=== PATIENT | female | born 1995 | race Caucasian/White ===

== ENCOUNTER 2019-08-28 21:40 | Emergency (ER) | payer OTHER ==
[~2019-08-28] VITALS: Ht 188 cm; Wt 79.5 kg
[~2019-08-28 21:40] MED LIST: DEPO150I12 IM; LEVO100T5 PO; ONDA-83 PO; REGL5TAB2 PO; TRAM50TA2 PO
[2019-08-28] MEDS ORDERED: ATIV1TAB10 PO (21:47)
[2019-08-29 00:07] LABS: BASO % 0.3 % (0.0-1.0); EOS # 0.1 10^3/uL (0.0-0.5); EOS % 0.8 % (0.0-3.0); HEMATOCRIT 39.4 % (36.0-47.0); HEMOGLOBIN 13.4 g/dl (12.0-15.5); LYMPH # 3.3 10^3/uL (1.5-5.0); LYMPH % 36.2 % (24.0-44.0); MEAN CORPUSCULAR HEMOGLOBIN 29.6 pg (27.0-33.0); MEAN CORPUSCULAR VOLUME 87.2 fl (80.0-96.0); MONO # 0.7 10^3/uL (0.0-0.8); MONO % 7.4 % (0.0-5.0); NEUTROPHILS % 54.9 % (36.0-66.0); PLATELET COUNT, AUTOMATED 258 10^3/uL (150-450); RED BLOOD COUNT 4.52 10^6/uL (4.00-5.40); WHITE BLOOD COUNT 9.1 10^3/uL (4.0-10.0)
[2019-08-29 00:11] LABS: ALBUMIN 4.3 GM/DL (3.2-5.2); ALT/SGPT 12 U/L (12-78); BILIRUBIN,DIRECT 0.1 MG/DL (0.0-0.2); BILIRUBIN,TOTAL 0.4 MG/DL (0.2-1.0); CK-MB VALUE MASS < 1.0 NG/ML (<3.6); CPK CREATINE PHOSPHOKINASE 62 U/L (26-192); MB/CK RELATIVE INDEX 1.61 (< OR =4); RHEUMATOID FACTOR QUANT < 10.0 IU/ML (<15.0); TOTAL PROTEIN 7.6 GM/DL (6.4-8.2); TROPONIN I < 0.02 NG/ML (< 0.10)
[2019-08-29 00:13] LABS: MONO REFLEX EBV COMP NEGATIVE (NEGATIVE)
[2019-08-29 01:22] VITALS: BP 131/89
[2019-08-29 01:37] LABS: ERYTHROCYTE SEDIMENTATION RATE 7 mm/hr (0-20)
--- NOTE | 2019-08-29 12:55 | ECGEPIP ---
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
[2019-09-01 14:07] LABS: ANTI DOUBLE STRAND-DNA AB 6 IU/mL (0-9); ANTINUCLEAR ANTIBODIES DIRECT Positive (Negative); RNP ANTIBODIES <0.2 AI (0.0-0.9); SJOGREN'S ANTI SS-A 3.2 AI (0.0-0.9); SJOGREN'S ANTI SS-B <0.2 AI (0.0-0.9); SMITH ANTIBODIES <0.2 AI (0.0-0.9)
[2019-09-01 17:17] LABS: EBV AB TO NUCLEAR ANTIGEN >600.0 U/mL (0.0-17.9); EBV VIRAL CAPSID AG IgM <36.0 U/mL (0.0-35.9); Lyme Disease IgG/IgM Antibodie <0.91 ISR (0.00-0.90); Lyme Disease IgM Ab Quantitati <0.80 index (0.00-0.79)
== END 2019-08-29 01:30 | disposition home or self-care (01) ==
LOC: M ED 21:40
DX: R53.81 Other malaise (principal); R00.2 Palpitations; R10.9 Unspecified abdominal pain; I45.19 Other right bundle-branch block; E03.9 Hypothyroidism, unspecified; Z79.890 Hormone replacement therapy; Z79.3 Long term (current) use of hormonal contraceptives

== ENCOUNTER → 2019-09-01 | Outpatient (CLI) | payer OTHER, SELFPAY ==
[~2019-09-01] MED LIST changes: +ATIV1TAB10 PO
== END ==
LOC: M LABSMTC 09:50 → EDUNIT# 09:55
PROVIDERS: ATTEND Anesthesiology
DX: Z01.812 Encounter for preprocedural laboratory examination (principal); Z11.59 Encounter for screening for other viral diseases
CPT/HCPCS: C9803; U0003

== ENCOUNTER 2019-09-04 09:22 | Day surgery (SDC) | payer OTHER ==
[~2019-09-04] VITALS: Ht 188 cm; Wt 75.8 kg
[~2019-09-04 09:22] MED LIST changes: +NS 1,000 ML IV SCH
[2019-09-04] MEDS ORDERED: propofoL 200 MG/20 ML VIAL As Ordered ONE (09:38)
[2019-09-04] MEDS ORDERED: LIDOCAINE 2% 100MG/5ML SDV (FOR ANES.) As Ordered ONE (09:39)
[2019-09-04] MEDS ORDERED: fentaNYL 100 MCG/2 ML INJECTION (J3010) As Ordered ONE (10:11)
--- NOTE | 2019-09-04 10:24 | ROOR ---
Patient Name: Ольга Lima Procedure Date: 09/04/2019 10:03 AM Date of : 1995 Age: 23 Room: [facility] Gender: Female Note Status: Finalized Procedure: Upper Endoscopy + Biopsies Indications: Epigastric abdominal pain Providers: Enrique Chau MD Referring MD: Josefina Cassidy MD Requesting Provider: Medicines: Monitored Anesthesia Care Complications: No immediate complications. Procedure: Pre-Anesthesia Assessment: - The heart rate, respiratory rate, oxygen saturations, blood pressure, adequacy of pulmonary ventilation, and response to care were monitored throughout the procedure. The Endoscope was introduced through the mouth, and advanced to the second part of duodenum. The upper GI endoscopy was accomplished without difficulty. The patient tolerated the procedure well. Findings: The Z-line was regular and was found 40 cm from the incisors. Multiple biopsies were obtained with cold forceps for evaluation to rule out Hawkins's Esophagus randomly at the gastroesophageal junction. No other significant abnormalities were identified in a careful examination of the stomach. Biopsies were taken with a cold forceps in the gastric antrum for Helicobacter pylori testing. The exam of the duodenum was otherwise normal. Impression: - Z-line regular, 40 cm from the incisors. - Multiple biopsies were obtained at the gastroesophageal junction. - Biopsies were taken with a cold forceps for Helicobacter pylori testing. - The examination was otherwise normal. Recommendation: - Patient has a contact number available for emergencies. The signs and symptoms of potential delayed complications were discussed with the patient. Return to normal activities tomorrow. Written discharge instructions were provided to the patient. - High fiber diet. - Discharge patient to home. - Continue present medications. - Await pathology results. - Telephone GI clinic for pathology results in 1 week. - Return to referring physician. - The findings and recommendations were discussed with the patient's family. Enrique Chau MD Enrique Chau MD 09/04/2019 10:23:57 AM Electronically signed by Enrique Chau MD Number of Addenda: 0 Note Initiated On: 09/04/2019 10:03 AM Estimated Blood Loss: Estimated blood loss: none.
[2019-09-04 10:43] VITALS: BP 136/91
== END 2019-09-04 10:45 | disposition home or self-care (01) ==
LOC: M OPP 09:22
PROVIDERS: ATTEND Internal Medicine Gastroenterology
DX: R10.13 Epigastric pain (principal); K20.9 Esophagitis, unspecified; Z79.891 Long term (current) use of opiate analgesic; Z79.899 Other long term (current) drug therapy
CPT/HCPCS: 43239; 88305; J3010

== ENCOUNTER → 2019-10-13 | Outpatient (REF) | payer OTHER ==
[~2019-10-13] MED LIST changes: +AMIT25TA; +CARA1TAB6 PO; +LEVO50TA5; +METO10TA2; -NS 1,000 ML IV SCH; +OMEP40CA97 PO; +PEPC1TAB5 PO
[2019-10-13 14:23] LABS: BASO % 0.5 % (0.0-1.0); EOS # 0.1 10^3/uL (0.0-0.5); EOS % 1.3 % (0.0-3.0); HEMATOCRIT 42.2 % (36.0-47.0); HEMOGLOBIN 13.7 g/dl (12.0-15.5); LYMPH # 2.1 10^3/uL (1.5-5.0); LYMPH % 34.1 % (24.0-44.0); MEAN CORPUSCULAR HEMOGLOBIN 29.8 pg (27.0-33.0); MEAN CORPUSCULAR HGB CONC 32.5 g/dl (32.0-36.5); MEAN CORPUSCULAR VOLUME 91.7 fl (80.0-96.0); MONO # 0.5 10^3/uL (0.0-0.8); MONO % 7.4 % (0.0-5.0); NEUTROPHILS # 3.5 10^3/uL (1.5-8.5); NEUTROPHILS % 56.4 % (36.0-66.0); PLATELET COUNT, AUTOMATED 262 10^3/uL (150-450); WHITE BLOOD COUNT 6.2 10^3/uL (4.0-10.0)
[2019-10-13 15:21] LABS: ALBUMIN 4.3 GM/DL (3.2-5.2); ALT/SGPT 11 U/L (12-78); BILIRUBIN,TOTAL 0.3 MG/DL (0.2-1.0); BLOOD UREA NITROGEN 15 MG/DL (7-18); CALCIUM LEVEL 9.4 MG/DL (8.5-10.1); CARBON DIOXIDE LEVEL 27 MEQ/L (21-32); CHLORIDE LEVEL 108 MEQ/L (98-107); GLOMERULAR FILTRATION RATE > 60.0 (>60); GLUCOSE, FASTING 88 MG/DL (70-100); HCG, SERUM QUANTITATIVE < 1.0 MIU/ML; LIPASE 100 U/L (73-393); SODIUM LEVEL 140 MEQ/L (136-145); TOTAL PROTEIN 7.8 GM/DL (6.4-8.2)
[2019-10-14 19:07] LABS: ANA (HEP2) Positive (.)
== END ==
LOC: M SFHCPLAZ 10:57
PROVIDERS: ATTEND Family Medicine
DX: R10.10 Upper abdominal pain, unspecified (principal); E03.9 Hypothyroidism, unspecified; R11.0 Nausea; R76.8 Other specified abnormal immunological findings in serum

== ENCOUNTER → 2019-10-23 | Outpatient (CLI) | payer OTHER ==
--- NOTE | 2019-10-23 09:42 | REP ---
REASON FOR EXAM: Upper abdominal pain. PRIORS: None. The gallbladder is within normal limits. The common bile duct measures 3 mm. The hepatic parenchymal echo pattern is within normal limits. There are no masses. There is no ductal dilatation. The imaged portion of the pancreas and right kidney are within normal limits. There is no free fluid. IMPRESSION: Unremarkable right upper quadrant ultrasound.
== END ==
LOC: M WHC 07:29
PROVIDERS: ATTEND Family Medicine
DX: R10.10 Upper abdominal pain, unspecified (principal); R11.0 Nausea

== ENCOUNTER → 2019-12-09 | Outpatient (CLI) | payer OTHER ==
[2019-12-09 19:39] LABS: FREE T4 0.97 NG/DL (0.76-1.46); THYROID STIMULATING HORMONE 4.4 uIU/ML (0.358-3.740)
== END ==
LOC: M PLALAB 13:28
PROVIDERS: ATTEND Family Medicine
DX: E03.9 Hypothyroidism, unspecified (principal)

== ENCOUNTER 2020-01-11 21:24 | Emergency (ER) | payer OTHER ==
[~2020-01-11] VITALS: Ht 188 cm; Wt 86.6 kg
[~2020-01-11 21:24] MED LIST changes: -AMIT25TA; -CARA1TAB6 PO; -LEVO50TA5; -METO10TA2; -OMEP40CA97 PO; -PEPC1TAB5 PO
[2020-01-11] MEDS ORDERED: METO10TA2 (21:34)
[2020-01-11] MEDS ORDERED: LEVO50TA5 (21:34)
[2020-01-11] MEDS ORDERED: AMIT25TA (21:34)
[2020-01-12] MEDS ORDERED: GI COCKTAIL 50ML BTL(HYOSCYAMINE/MAALOX/LIDOCAINE VISCOUS)(1:3:1) PO ONE (01:45)
[2020-01-12] MEDS ORDERED: OMEPRAZOLE 20 MG CAP PO ONE (02:30)
[2020-01-12] MEDS ORDERED: FAMOTIDINE 20 MG TAB PO ONE (02:30)
[2020-01-12] MEDS ORDERED: SUCRALFATE 1 GM TAB PO ONE (02:30)
[2020-01-12] MEDS ORDERED: CARA1TAB6 PO (02:32)
[2020-01-12] MEDS ORDERED: PEPC1TAB5 PO (02:32)
[2020-01-12] MEDS ORDERED: OMEP40CA97 PO (02:32)
[2020-01-12 02:45] VITALS: BP 113/83
== END 2020-01-12 02:50 | disposition home or self-care (01) ==
LOC: M ED 21:24
DX: R10.13 Epigastric pain (principal); R11.0 Nausea; M79.7 Fibromyalgia; Z79.899 Other long term (current) drug therapy

== ENCOUNTER 2020-04-11 23:53 | Emergency (ER) | payer OTHER ==
[~2020-04-11] VITALS: Ht 188 cm; Wt 91.1 kg
[~2020-04-11 23:53] MED LIST changes: +AMIT25TA; +CARA1TAB6 PO; +LEVO50TA5; +METO10TA2; +OMEP40CA97 PO; +PEPC1TAB5 PO
[2020-04-12] MEDS ORDERED: AMIT50TA (00:01)
[2020-04-12] MEDS ORDERED: PREGABALIN 100 MG CAP (LYRICA) PO ONE (01:00)
[2020-04-12] MEDS ORDERED: NS 1,000 ML IV ONE (01:00)
[2020-04-12 02:23] LABS: BASO % 0.3 % (0.0-1.0); EOS # 0.2 10^3/uL (0.0-0.5); EOS % 1.2 % (0.0-3.0); HEMATOCRIT 41.4 % (36.0-47.0); LYMPH # 3.2 10^3/uL (1.5-5.0); LYMPH % 25.6 % (24.0-44.0); MEAN CORPUSCULAR HEMOGLOBIN 27.9 pg (27.0-33.0); MEAN CORPUSCULAR HGB CONC 31.4 g/dl (32.0-36.5); MEAN CORPUSCULAR VOLUME 88.8 fl (80.0-96.0); MONO # 0.8 10^3/uL (0.0-0.8); MONO % 6.3 % (0.0-5.0); NEUTROPHILS # 8.3 10^3/uL (1.5-8.5); NEUTROPHILS % 66.3 % (36.0-66.0); PLATELET COUNT, AUTOMATED 305 10^3/uL (150-450); RED BLOOD COUNT 4.66 10^6/uL (4.00-5.40); WHITE BLOOD COUNT 12.5 10^3/uL (4.0-10.0)
[2020-04-12 02:51] LABS: CK-MB VALUE MASS < 1.0 NG/ML (<3.6); CPK CREATINE PHOSPHOKINASE 68 U/L (26-192); MAGNESIUM LEVEL 2.2 MG/DL (1.8-2.4); MB/CK RELATIVE INDEX 1.47 (< OR =4); TROPONIN I < 0.02 NG/ML (< 0.10)
--- NOTE | 2020-04-12 02:56 | REPVR ---
PROCEDURE INFORMATION: Exam: CT Head Without Contrast Exam date and time: 04/12/2020 12:59 AM Age: 24 years old Clinical indication: Other: Syncope TECHNIQUE: Imaging protocol: Computed tomography of the head without contrast. Radiation optimization: All CT scans at this facility use at least one of these dose optimization techniques: automated exposure control; mA and/or kV adjustment per patient size (includes targeted exams where dose is matched to clinical indication); or iterative reconstruction. COMPARISON: No relevant prior studies available. FINDINGS: Brain: Normal. No hemorrhage. Unremarkable white matter. No mass effect. Cerebral ventricles: No ventriculomegaly. Bones/joints: Unremarkable. No acute fracture. Paranasal sinuses: Visualized sinuses are unremarkable. No fluid levels. Mastoid air cells: Visualized mastoid air cells are well aerated. Soft tissues: Unremarkable. IMPRESSION: No acute intracranial abnormality. Electronically signed by: Wilbur Manriquez On 04/12/2020 02:56:04 AM
[2020-04-12 06:47] VITALS: BP 131/93
--- NOTE | 2020-04-12 17:36 | ECGEPIP ---
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
== END 2020-04-12 06:49 | disposition home or self-care (01) ==
LOC: M ED 23:53
DX: I95.1 Orthostatic hypotension (principal); M79.7 Fibromyalgia; R00.0 Tachycardia, unspecified; E03.9 Hypothyroidism, unspecified; Z79.890 Hormone replacement therapy; Z79.899 Other long term (current) drug therapy

== ENCOUNTER → 2020-04-14 | Outpatient (CLI) | payer OTHER ==
[~2020-04-14] MED LIST changes: +AMIT50TA
--- NOTE | 2020-04-14 09:55 | REP ---
INDICATION: GOITER COMPARISON: None. TECHNIQUE: Palmer scale and color evaluation of the thyroid gland using the linear high frequency transducer. FINDINGS: The thyroid gland is mildly enlarged and diffusely heterogeneous without discrete nodule or cyst identified. Right lobe measures 5.3 x 2.2 x 1.6 cm. Left lobe measures 5.7 x 2.3 x 1.6 cm. Isthmus measures 6 mm in width. IMPRESSION: Heterogeneous mildly enlarged thyroid gland. <Electronically signed by Kenyon Krause > 04/14/20 [id number]
== END ==
LOC: M RAD 09:09
PROVIDERS: ATTEND Internal Medicine Cardiovascular Disease
DX: E04.9 Nontoxic goiter, unspecified (principal)

== ENCOUNTER → 2020-04-19 | Outpatient (REF) | payer OTHER ==
[~2020-04-19] MED LIST changes: -AMIT25TA; +AMIT25TA17
[2020-04-19 18:03] LABS: BASO % 0.4 % (0.0-1.0); EOS # 0.1 10^3/uL (0.0-0.5); HEMATOCRIT 42.4 % (36.0-47.0); HEMOGLOBIN 13.2 g/dl (12.0-15.5); LYMPH # 2.8 10^3/uL (1.5-5.0); LYMPH % 30.9 % (24.0-44.0); MEAN CORPUSCULAR HEMOGLOBIN 28.4 pg (27.0-33.0); MEAN CORPUSCULAR HGB CONC 31.1 g/dl (32.0-36.5); MEAN CORPUSCULAR VOLUME 91.4 fl (80.0-96.0); MONO # 0.6 10^3/uL (0.0-0.8); MONO % 6.2 % (0.0-5.0); NEUTROPHILS # 5.5 10^3/uL (1.5-8.5); NEUTROPHILS % 61.4 % (36.0-66.0); PLATELET COUNT, AUTOMATED 313 10^3/uL (150-450); RED BLOOD COUNT 4.64 10^6/uL (4.00-5.40); WHITE BLOOD COUNT 8.9 10^3/uL (4.0-10.0)
== END ==
LOC: M PLALAB 13:46
PROVIDERS: ATTEND Family Medicine
DX: D72.829 Elevated white blood cell count, unspecified (principal)
CPT/HCPCS: 36415; 85025; G0463

== ENCOUNTER → 2020-04-27 | Outpatient (CLI) | payer OTHER ==
--- NOTE | 2020-04-28 11:14 | REP ---
INDICATION: R10.2 PELVIC PAIN COMPARISON: None. TECHNIQUE: Transabdominal pelvic ultrasound followed by transvaginal examination for better evaluation of the endometrium and adnexa with color Doppler evaluation of the ovaries. FINDINGS: Bladder is unremarkable and measures 11.3 x 9.5 x 6.6 cm (371 cc).. Normal anteverted uterus measures 7.4 x 3.3 x 5.3 cm. The endometrial complex measures 6.8 mm thickness. No discrete uterine or endometrial abnormalities are appreciated. Bilateral ovaries are normal in appearance and vascularity without evidence for torsion. Right ovary measures 3.8 x 1.3 x 2.4 cm; R I = 0.56. Left ovary measures 3.4 x 1.4 x 2.8 cm; R I = 0.46. Small amount of fluid in the right adnexa is nonspecific and possibly physiologic. IMPRESSION: Essentially normal examination. Small amount of right adnexal free fluid likely physiologic. <Electronically signed by Kenyon Krause > 04/28/20 1111
== END ==
LOC: M WHC 13:55
PROVIDERS: ATTEND Specialist
DX: R10.2 Pelvic and perineal pain (principal)

== ENCOUNTER → 2020-07-04 | Outpatient (REF) | payer OTHER ==
[2020-07-04 19:05] LABS: FREE T4 0.95 NG/DL (0.76-1.46); THYROID STIMULATING HORMONE 6.69 uIU/ML (0.358-3.740)
== END ==
LOC: M SFHCPLAZ 15:07
PROVIDERS: ATTEND Family Medicine
DX: E03.9 Hypothyroidism, unspecified (principal)

== ENCOUNTER → 2020-08-22 | Outpatient (REF) | payer OTHER ==
[2020-08-22 17:53] LABS: APPEARANCE, URINE HAZY (CLEAR); BACTERIA, URINE AUTO NEGATIVE (NEGATIVE); BILIRUBIN, URINE AUTO NEGATIVE (NEGATIVE); BLOOD, URINE BLOOD 1+ (NEGATIVE); CALCIUM OXALATE CRYSTALS MODERATE; COLOR, URINE YELLOW (YELLOW); GLUCOSE, URINE (UA) AUTO NEGATIVE (NEGATIVE); KETONE, URINE AUTO NEGATIVE (NEGATIVE); LEUKOCYTE ESTERASE, URINE AUTO NEGATIVE (NEGATIVE); MUCUS, URINE MODERATE (NEGATIVE); NITRITE, URINE AUTO NEGATIVE (NEGATIVE); PROTEIN, URINE AUTO NEGATIVE (NEGATIVE); RBC, URINE AUTO 1 /HPF (0-3); SPECIFIC GRAVITY URINE AUTO 1.016 (1.002-1.035); SQUAMOUS EPITHELIAL CELL UR AU 1 /HPF (0-6); UROBILINOGEN, URINE AUTO 0.2 mg/dL (0.0-2.0); WBC, URINE AUTO 3 /HPF (0-3)
== END ==
LOC: M SFHCPLAZ 15:08
PROVIDERS: ATTEND Family Medicine
DX: E03.9 Hypothyroidism, unspecified (principal); R35.0 Frequency of micturition
CPT/HCPCS: 36415; 81001; 84443; 87086; G0463

== ENCOUNTER → 2021-07-11 | Outpatient (CLI) | payer OTHER ==
[~2021-07-11] MED LIST changes: +OMEP40CA4 PO; -OMEP40CA97 PO
== END ==
LOC: M PLALAB 09:45
PROVIDERS: ATTEND Family Medicine
DX: E03.9 Hypothyroidism, unspecified (principal)

== ENCOUNTER → 2021-08-02 | Outpatient (CLI) | payer OTHER ==
[2021-08-02 18:10] LABS: FERRITIN 20 NG/ML (8-252); FOLATE > 24.0 NG/ML; RHEUMATOID FACTOR QUANT < 10.0 IU/ML (<15.0); TOTAL 25(OH) VITAMIN D 50.3 NG/ML (30.0-100.0); TOTAL PROTEIN 7.6 GM/DL (6.4-8.2); VITAMIN B12 LEVEL 398 PG/ML
[2021-08-02 19:12] LABS: HEMOGLOBIN A1c 4.9 %
== END ==
LOC: M PLALAB 15:54
PROVIDERS: ATTEND Psychiatry & Neurology Neurology
DX: R53.1 Weakness (principal); E11.9 Type 2 diabetes mellitus without complications; Z79.899 Other long term (current) drug therapy

== ENCOUNTER → 2021-08-14 | Outpatient (CLI) | payer OTHER | LOC: M LAB 13:15 | PROVIDERS: ATTEND Psychiatry & Neurology Neurology | DX: R53.1 Weakness (principal) ==

== ENCOUNTER → 2021-10-13 | Outpatient (CLI) | payer OTHER ==
[2021-10-13 16:10] LABS: FREE T4 0.52 NG/DL (0.76-1.46); THYROID STIMULATING HORMONE 2.2 uIU/ML (0.358-3.740)
== END ==
LOC: M PLALAB 14:28
PROVIDERS: ATTEND Physician Assistant
DX: E03.9 Hypothyroidism, unspecified (principal)